=== PATIENT | male | born 1995 | race Caucasian/White ===

== ENCOUNTER 2016-04-29 22:05 | Emergency (ER) | payer OTHER, MEDICAID ==
[2016-04-29] MEDS ORDERED: IBUPROFEN 800 MG TABLET PO STA (22:20)
[2016-04-29] MEDS ORDERED: IBUPROFEN 800 MG TABLET PO ONE (22:22)
[2016-04-29] MEDS ORDERED: IBUPROFEN 400 MG TABLET PO STA (22:30)
[2016-04-29] MEDS ORDERED: IBUPROFEN 400 MG TABLET PO ONE (22:31)
== END 2016-04-29 23:46 | disposition home or self-care (01) ==
DX: S80.01XA Contusion of right knee, initial encounter (principal); W10.9XXA Fall (on) (from) unspecified stairs and steps, initial encounter; F17.200 Nicotine dependence, unspecified, uncomplicated
CPT/HCPCS: 1040M; 73562; 99283; A9270

== ENCOUNTER 2016-09-26 21:38 | Emergency (ER) | payer MEDICAID ==
--- NOTE | 2016-09-26 22:47 | XRAY Preliminary Report ---
Exam: XR Chest 2 View PA/LAT IMPRESSION: No acute intrathoracic plain film abnormality. [facility] SITE ID: [id number]
--- NOTE | 2016-09-26 22:50 | XRAY Report ---
EXAM: CHEST RADIOGRAPHY EXAM DATE: 09/26/2016 10:40 PM. CLINICAL HISTORY: Chest pain/ thoracic back pain. COMPARISON: 12/09/2015. TECHNIQUE: 2 views. FINDINGS: Lungs/Pleura: No focal opacities evident. No pleural effusion. No pneumothorax. Normal volumes. Mediastinum: Heart and mediastinal contours are unremarkable. Other: None. IMPRESSION: No acute intrathoracic plain film abnormality. [facility] Referring Provider Line: [phone] SITE ID: [id number]
--- NOTE | 2016-09-26 23:13 | ED Physician Documentation ---
History of Present Illness - Stated complaint Stated Complaint: BACK PX - Chief complaint Chief Complaint: Back Pain - Additonal information Additional information: This patient is a 21-year-old male who presents with a complaint of thoracic back pain off and on for approximately a week. There is no significant history of injury. He says sometimes he has a difficult time breathing however other times he does not. When he takes a deep breath does exacerbate the pain in the back. He does not have any abdominal pain anteriorly that might be because of referred pain to the chest. He does not have any pulmonary symptoms such as fever chills or cough or shortness of breath. The pain is clearly worse when he moves and better with rest he says. He complains of pain in the intrascapular area. Review of systems: For pertinent positive and negatives in the review of systems please see history of present illness. Otherwise all other systems have been reviewed and are negative. Dragon disclaimer: Parts of this medical record were created using voice recognition technology. Because of the inherent limitations of this system occasional same sounding word substitutions do occur and persist despite proofreading. Please read the document for context. Review of Systems Ten Systems: 10 systems reviewed and negative Constitutional: denies: Fever, Chills, Myalgias Respiratory: denies: Dyspnea, Cough, Hemoptysis, Wheezing GI: denies: Abdominal Pain, Nausea, Vomiting PD PAST MEDICAL HISTORY - Past Medical History Past Medical History: Yes Cardiovascular: None Neuro: None : Kidney stones HEENT: None - Past Surgical History Past Surgical History: Yes HEENT: Tonsil/Adenoidectomy - Present Medications Home Medications: Ambulatory Orders Medication Instructions Recorded Confirmed Ibuprofen 800 mg PO TID PRN #30 tablet 04/29/16 09/26/16 oxyCODONE [Roxicodone] 5 mg PO ONCE PRN #14 tablet 09/26/16 - Allergies Allergies/Adverse Reactions: Allergies Allergy/AdvReac Type Severity Reaction Status Date / Time ranitidine Allergy Unknown Verified 09/26/16 21:45 acetaminophen [From Tylenol] AdvReac Nausea Verified 09/26/16 21:45 tramadol AdvReac Nausea Verified 09/26/16 21:45 - Social History Does the pt smoke?: Yes Smoking Status: Current every day smoker Does the pt drink ETOH?: Yes Does the pt have substance abuse?: Yes Substance Use and Type: Marijuana - Immunizations Immunizations are current?: Yes Immunizations: TDAP >10years/unknown - POLST Patient has POLST: No PD ED PE NORMAL - General General: Alert and oriented X 3, No acute distress - HEENT HEENT: Atraumatic, PERRL, EOMI - Neck Neck: Supple, no meningeal sign, No bony TTP - Cardiac Cardiac: RRR, No gallop - Respiratory Respiratory: No respiratory distress, Clear bilaterally, Other (Tender along the thoracic spine approximately T3-T4 area) - Abdomen Abdomen: Normal bowel sounds - Derm Derm: Normal color, Warm and dry - Extremities Extremities: No deformity, No tenderness to palpate - Neuro Neuro: Alert and oriented X 3 - Psych Psych: Normal mood, Normal affect Results - Vitals Vitals: Vital Signs - 24 hr 09/26/16 21:43 Temperature 36.5 C Heart Rate 77 Respiratory 16 Rate Blood Pressure 125/81 H O2 Saturation 100 Oxygen O2 Source Room air PD MEDICAL DECISION MAKING - ED course ED course: Patient is otherwise young healthy male who complains of thoracic back pain. He says sometimes breathing exacerbates the pain and he denies any abdominal pain that might be a source of referred pain to the thoracic spine. On examination he is tender in the intrascapular area consistent with a musculoskeletal etiology.A 2 view chest was performed to 1 rule out any pulmonic or cardiac problems and to to see the thoracic spine in the lateral view. These radiographs are completely normal. The patient clinically is doing well. I will write for small amount of pain medication and asked him to follow-up with his primary care physician or return if worse. Disposition: To home Clinical impression: 1. Thoracic back strain without evidence of referred pain from the abdomen or any pulmonary or cardiac abnormalities. Departure - Departure Disposition: 01 Home, Self Care Clinical Impression: Strain of thoracic region Qualifiers: Encounter type: initial encounter Qualified Code(s): S29.019A - Strain of muscle and tendon of unspecified wall of thorax, initial encounter Condition: Good Instructions: ED Sprain Thoracic Spine Follow-Up: your, physican [Other] Prescriptions: oxyCODONE [Roxicodone] 5 mg PO ONCE PRN #14 tablet PRN Reason: Pain
[2016-09-26 23:14] VITALS: BP 116/79
== END 2016-09-26 23:12 | disposition home or self-care (01) ==
LOC: ED 21:38
DX: S29.019A Strain of muscle and tendon of unspecified wall of thorax, initial encounter (principal); X58.XXXA Exposure to other specified factors, initial encounter; F17.200 Nicotine dependence, unspecified, uncomplicated
CPT/HCPCS: 71020; 99282; 99283

== ENCOUNTER 2016-10-07 16:30 | Emergency (ER) | payer MEDICAID ==
[2016-10-07 16:44] VITALS: BP 130/79
--- NOTE | 2016-10-07 17:13 | ED Physician Documentation ---
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 Has had pain in the L heel for the past month. Noted swelling intermittently. Wears the same shoes every day. Review of Systems Constitutional: denies: Fever, Chills GI: denies: Nausea, Vomiting, Diarrhea Skin: denies: Rash Musculoskeletal: denies: Neck pain, Back pain Neurologic: denies: Headache PD PAST MEDICAL HISTORY - Past Medical History Cardiovascular: None Neuro: None : Kidney stones HEENT: None - Past Surgical History Past Surgical History: Yes HEENT: Tonsil/Adenoidectomy - Present Medications Home Medications: Ambulatory Orders Medication Instructions Recorded Confirmed Terbinafine HCl [Lamisil] 1 applic TP BID #1 spray 10/07/16 - Allergies Allergies/Adverse Reactions: Allergies Allergy/AdvReac Type Severity Reaction Status Date / Time ranitidine Allergy Unknown Verified 10/07/16 17:13 acetaminophen [From Tylenol] AdvReac Nausea Verified 10/07/16 17:13 tramadol AdvReac Nausea Verified 10/07/16 17:13 - Social History Does the pt smoke?: Yes Smoking Status: Current every day smoker Does the pt drink ETOH?: Yes Does the pt have substance abuse?: Yes - Immunizations Immunizations are current?: Yes Immunizations: TDAP >10years/unknown - POLST Patient has POLST: No PD ED PE NORMAL - Vitals Vital signs reviewed: Yes - General General: Alert and oriented X 3, No acute distress - Extremities Extremities: Other (scaling to the heel of the R foot, mild erythema. no swelling or drainage) - Neuro Neuro: Alert and oriented X 3 - Psych Psych: Normal mood, Normal affect Results - Vitals Vitals: Vital Signs - 24 hr 10/07/16 16:43 Temperature 36.8 C Heart Rate 92 Respiratory 18 Rate Blood Pressure 130/79 O2 Saturation 98 Oxygen O2 Source Room air PD MEDICAL DECISION MAKING - ED course Complexity details: considered differential, d/w patient, d/w family ED course: Patient is a 21-year-old male who presents to the emergency department with what appears to be a fungal infection of the heel. Also may be pitted karetolysis, Will trial on terbinafine topically, regular sock and shoe changes and trying to dry the feet out. We will have him follow-up with his doctor if he is not improving. Patient is well-appearing, nontoxic. Afebrile. Patient and family counseled regarding signs and symptoms for which I believe and urgent re-evaluation would be necessary. Patient with good understanding of and agreement to plan and is comfortable going home at this time This document was made in part using voice recognition software. While efforts are made to proofread this document, sound alike and grammatical errors may occur. Departure - Departure Disposition: 01 Home, Self Care Clinical Impression: Tinea pedis of left foot Condition: Good Instructions: ED Fungal Infec Athlete Foot Follow-Up: Aime Garcia MD [Primary Care Provider] - Within 1 week Prescriptions: Terbinafine HCl [Lamisil] 1 applic TP BID #1 spray Comments: Return if you worsen. This should improve over the next few days. Rotate shoes daily and change your socks during the day. Discharge Date/Time: 10/07/16 17:18
== END 2016-10-07 17:18 | disposition home or self-care (01) ==
LOC: ED 16:30
DX: B35.3 Tinea pedis (principal); F17.200 Nicotine dependence, unspecified, uncomplicated
CPT/HCPCS: 99283

== ENCOUNTER 2016-11-27 21:32 | Emergency (ER) | payer MEDICAID ==
--- NOTE | 2016-11-27 22:15 | ED Physician Documentation ---
PD HPI CHEST PAIN - Stated complaint Stated Complaint: CHEST PAIN/DIFF BREATHING - Chief complaint Chief Complaint: Cardiac - History obtained from History obtained from: Patient - History of Present Illness Timing - onset: Today (several episodes since this morning, although he has had similar episodes, albeit less intense, since he was 6 years old) Timing - duration: Minutes Timing - details: Abrupt onset, Still present, Intermittant Pain level now: 5 Quality: Pain Location: Substernal Radiation: Other (no radiation) Improved by: No: Rest, Oxygen, Nitro, ASA, Antacids, Other medication, Nothing Worsened by: No: Exertion, Inspiration, Eating, Movement, Palpation, Position Associated symptoms: Palpitations. No: Shortness of air, Diaphoresis, Nausea, Vomiting, General Weakness Similar symptoms before: Diagnosis (some symptoms are similar to previous anxiety, but the chest pain is new) Recently seen: Emergency Dept - Additional information Additional information: c/o anxiety, jittery, palpitations, chest pain, dyspnea; episodic since this morning Review of Systems Constitutional: reports: Reviewed and negative Cardiac: reports: Chest pain / pressure, Palpitations. denies: Pedal edema, Calf pain Respiratory: reports: Dyspnea. denies: Cough GI: reports: Reviewed and negative Neurologic: denies: Generalized weakness, Focal weakness, Numbness, Headache Psychiatric: reports: Anxiety. denies: Depressed, Suicidal PD PAST MEDICAL HISTORY - Past Medical History Cardiovascular: None Neuro: None : Kidney stones HEENT: None - Past Surgical History Past Surgical History: Yes HEENT: Tonsil/Adenoidectomy - Present Medications Home Medications: Ambulatory Orders Medication Instructions Recorded Confirmed Terbinafine HCl [Lamisil] 1 applic TP BID #1 spray 10/07/16 LORazepam [Ativan] 0.5 - 1 mg PO Q6H PRN #14 tablet 11/28/16 - Allergies Allergies/Adverse Reactions: Allergies Allergy/AdvReac Type Severity Reaction Status Date / Time ranitidine Allergy Unknown Verified 11/27/16 21:45 acetaminophen [From Tylenol] AdvReac Nausea Verified 11/27/16 21:45 tramadol AdvReac Nausea Verified 11/27/16 21:45 - Social History Does the pt smoke?: Yes Smoking Status: Current every day smoker Does the pt drink ETOH?: Yes Does the pt have substance abuse?: Yes - Immunizations Immunizations are current?: Yes Immunizations: TDAP >10years/unknown - POLST Patient has POLST: No PD ED PE NORMAL - Vitals Vital signs reviewed: Yes - General General: Alert and oriented X 3, Well developed/nourished, Other - Cardiac Cardiac: RRR, No murmur, No gallop, No rub - Respiratory Respiratory: No respiratory distress, Clear bilaterally - Abdomen Abdomen: Soft, Non tender Results - Vitals Vitals: Oxygen O2 Source Room air - EKG (time done) No standard instances Rate: Rate (enter#) (81) Rhythm: NSR Doland: Normal Intervals: Normal OR QRS: Normal Ischemia: Normal ST segments - Rads (name of study) chest xray Radiology: Prelim report reviewed, See rad report PD MEDICAL DECISION MAKING - ED course Complexity details: reviewed results, re-evaluated patient, considered differential, d/w patient Departure - Departure Disposition: 01 Home, Self Care Clinical Impression: Atypical chest pain, Anxiety Condition: Good Instructions: ED Chest Pain Atypical Unkn Cause, ED Panic Attack Follow-Up: Aime Garcia MD [Primary Care Provider] - (Call in the morning to arrange for next available appointment) Prescriptions: LORazepam [Ativan] 0.5 - 1 mg PO Q6H PRN #14 tablet PRN Reason: Anxiety Discharge Date/Time: 11/28/16 00:25
--- NOTE | 2016-11-27 23:55 | XRAY Preliminary Report ---
Exam: XR Chest 2 View PA/LAT IMPRESSION: Normal 2-view chest radiography. [facility] SITE ID: [id number]
--- NOTE | 2016-11-27 23:57 | XRAY Report ---
EXAM: CHEST RADIOGRAPHY EXAM DATE: 11/27/2016 11:31 PM. CLINICAL HISTORY: Chest pain. COMPARISON: 09/27/2011 chest x-ray. TECHNIQUE: 2 views. FINDINGS: Lungs/Pleura: No focal opacities evident. No pleural effusion. No pneumothorax. Normal volumes. Mediastinum: Heart and mediastinal contours are unremarkable. Other: None. IMPRESSION: Normal 2-view chest radiography. [facility] Referring Provider Line: [phone] SITE ID: [id number]
[2016-11-28] MEDS ORDERED: LORazepam 0.5 MG TABLET PO STA (00:01)
[2016-11-28] MEDS ORDERED: LORazepam 0.5 MG TABLET ONE (00:14)
[2016-11-28 00:28] VITALS: BP 116/70
== END 2016-11-28 00:25 | disposition home or self-care (01) ==
LOC: ED 21:32
DX: R07.89 Other chest pain (principal); F41.9 Anxiety disorder, unspecified; F17.200 Nicotine dependence, unspecified, uncomplicated
CPT/HCPCS: 71020; 93005; 99283; A9270

== ENCOUNTER 2016-12-13 11:27 | Emergency (ER) | payer MEDICAID ==
[2016-12-13 11:32] VITALS: BP 121/81
== END 2016-12-13 12:20 | disposition left against medical advice (07) ==
LOC: ED 11:27
DX: Z53.21 Procedure and treatment not carried out due to patient leaving prior to being seen by health care provider (principal)
CPT/HCPCS: 99281

== ENCOUNTER 2017-04-11 22:22 | Emergency (ER) | payer MEDICAID ==
[2017-04-11 22:44] LABS: BASOPHILS % (AUTO) 0.3 %; EOSINOPHILS # (AUTO) 0.2 10^3/uL (0.0-0.7); EOSINOPHILS % (AUTO) 1.6 %; HGB - HEMOGLOBIN 17.4 g/dL (14.0-18.0); LYMPHOCYTES # (AUTO) 3.4 10^3/uL (1.5-3.5); LYMPHOCYTES % (AUTO) 33.6 %; MEAN CORPUSCULAR HEMOGLOBIN 33.1 pg (27.0-31.0); MEAN CORPUSCULAR VOLUME 94.6 fL (80.0-94.0); MEAN PLATELET VOLUME 8.6 fL (7.4-11.4); MONOCYTES % (AUTO) 10.1 %; NEUTROPHILS # (AUTO) 5.4 10^3/uL (1.5-6.6); NEUTROPHILS % (AUTO) 54.4 %; PLT - PLATELET COUNT 226 10^3/uL (130-450); RED BLOOD COUNT 5.27 10^6/uL (4.70-6.10); RED CELL DISTRIBUTION WIDTH 13.6 % (12.0-15.0)
[2017-04-11 22:44] LABS: BILIRUBIN,URINE NEGATIVE (NEGATIVE); GLUCOSE, URINE (UA) NEGATIVE (NEGATIVE); KETONES,URINE (UA) NEGATIVE (NEGATIVE); LEUKOCYTE ESTERASE, URINE NEGATIVE (NEGATIVE); NITRITE,URINE NEGATIVE (NEGATIVE); OCCULT BLOOD,URINE TRACE-INTA (NEGATIVE); PROTEIN,URINE NEGATIVE (NEGATIVE); UROBILINOGEN,URINE 0.2 (NORMAL) E.U./dL (NORMAL)
[2017-04-11 22:45] LABS: CLARITY,URINE CLEAR (CLEAR)
[2017-04-11 22:55] LABS: ALBUMIN 4.8 g/dL (3.2-5.5); ALBUMIN/GLOBULIN RATIO 1.5 (1.0-2.2); BILIRUBIN,TOTAL 0.6 mg/dL (0.2-1.0); CALCIUM 9.6 mg/dL (8.5-10.3); CREATININE 0.8 mg/dL (0.6-1.2); TOTAL PROTEIN 8.1 g/dL (6.7-8.2)
--- NOTE | 2017-04-11 23:38 | ED Physician Documentation ---
PD HPI ABD PAIN - Stated complaint Stated Complaint: ABD PX/VOMITING - Chief complaint Chief Complaint: Abd Pain - History obtained from History obtained from: Patient - History of Present Illness Timing - onset: How many days ago (6 days) Timing - details: Gradual onset Pain level now: 6 Quality: Pain Location: Epigastric, LUQ Radiation: No: Chest, , Lower back, Left flank, Left shoulder, Right flank, Right shoulder, Upper back Improved by: Other (no ameliorating factors) Worsened by: Other (no exacerbating factors) Associated symptoms: Nausea, Vomiting, Diarrhea. No: Fever Similar symptoms before: Has not had sx before Review of Systems Constitutional: reports: Reviewed and negative Cardiac: reports: Reviewed and negative Respiratory: reports: Reviewed and negative GI: reports: Abdominal Pain, Nausea, Vomiting, Diarrhea : denies: Dysuria, Frequency PD PAST MEDICAL HISTORY - Past Medical History Past Medical History: Yes Cardiovascular: None Respiratory: None Neuro: None Endocrine/Autoimmune: None : Kidney stones HEENT: None Psych: Depression, Anxiety Derm: None - Past Surgical History Past Surgical History: Yes Ortho: Other HEENT: Tonsil/Adenoidectomy - Present Medications Home Medications: Ambulatory Orders Medication Instructions Recorded Confirmed Omeprazole [PriLOSEC] 20 mg PO DAILY #14 capsule 04/12/17 Ondansetron Odt [Zofran] 4 mg TL Q6H PRN #14 tablet 04/12/17 Phenobarb/Hyoscy/Atropine/Scop 16.2 mg PO Q6HR PRN #12 tablet 04/12/17 [ Tablet] - Allergies Allergies/Adverse Reactions: Allergies Allergy/AdvReac Type Severity Reaction Status Date / Time ranitidine Allergy Unknown Verified 04/11/17 22:25 acetaminophen [From Tylenol] AdvReac Nausea Verified 04/11/17 22:25 tramadol AdvReac Nausea Verified 04/11/17 22:25 - Social History Does the pt smoke?: Yes Smoking Status: Current every day smoker Does the pt drink ETOH?: Yes Does the pt have substance abuse?: Yes - Immunizations Immunizations are current?: No Immunizations: TDAP >10years/unknown - POLST Patient has POLST: No PD ED PE NORMAL - Vitals Vital signs reviewed: Yes - General General: Alert and oriented X 3, No acute distress, Well developed/nourished - HEENT HEENT: Moist mucous membranes - Neck Neck: Supple, no meningeal sign - Cardiac Cardiac: RRR, No murmur - Respiratory Respiratory: No respiratory distress, Clear bilaterally - Abdomen Abdomen: Normal bowel sounds, Soft, Non tender, Non distended, No organomegaly - Derm Derm: Normal color, Warm and dry Results - Vitals Vitals: Vital Signs - 24 hr 04/11/17 04/12/17 04/12/17 22:25 00:41 02:22 Temperature 36.7 C 36.6 C Heart Rate 88 69 65 Respiratory 18 16 18 Rate Blood Pressure 142/109 H 129/82 H 124/75 O2 Saturation 100 99 98 Oxygen O2 Source Room air - Labs Labs: Laboratory Tests 04/11/17 04/11/17 04/11/17 22:35 22:37 22:37 WBC 10.0 RBC 5.27 Hgb 17.4 Hct 49.8 MCV 94.6 H MCH 33.1 H MCHC 35.0 RDW 13.6 Plt Count 226 MPV 8.6 Neut # 5.4 Lymph # 3.4 Breathitt # 1.0 Eos # 0.2 Baso # 0.0 Absolute Nucleated RBC 0.01 Nucleated RBC % 0.1 Sodium 138 Potassium 3.5 Chloride 98 L Carbon Dioxide 29 Anion Gap 11.0 BUN 15 Creatinine 0.8 Estimated GFR (MDRD) 119 Glucose 106 H Calcium 9.6 Total Bilirubin 0.6 AST 21 ALT 21 Alkaline Phosphatase 61 Total Protein 8.1 Albumin 4.8 Globulin 3.3 Albumin/Globulin Ratio 1.5 Lipase 24 Urine Color YELLOW Urine Clarity CLEAR Urine pH 7.0 Ur Specific [place] 1.020 Urine Protein NEGATIVE Urine Glucose (UA) NEGATIVE Urine Ketones NEGATIVE Urine Occult Blood TRACE-INTA Urine Nitrite NEGATIVE Urine Bilirubin NEGATIVE Urine Urobilinogen 0.2 (NORMAL) Ur Leukocyte Esterase NEGATIVE Ur Microscopic Review NOT INDICATED Urine Culture Comments NOT INDICATED PD MEDICAL DECISION MAKING - ED course Complexity details: reviewed results, re-evaluated patient, considered differential, d/w patient ED course: reported improvement with GI cocktail, zofran, requesting discharge home Departure - Departure Disposition: , Self Care Clinical Impression: Abdominal pain Qualifiers: Abdominal location: upper abdomen, unspecified Qualified Code(s): R10.10 - Upper abdominal pain, unspecified Condition: Good Instructions: ED Abdominal Pain Unkn Cause Male Follow-Up: Aime Garcia MD [Primary Care Provider] - Within 1 week Prescriptions: Phenobarb/Hyoscy/Atropine/Scop [ Tablet] 16.2 mg PO Q6HR PRN #12 tablet PRN Reason: Abdominal Pain Omeprazole [PriLOSEC] 20 mg PO DAILY #14 capsule Ondansetron Odt [Zofran] 4 mg TL Q6H PRN #14 tablet PRN Reason: Nausea / Vomiting Discharge Date/Time: 04/12/17 02:23
[2017-04-11] MEDS ORDERED: LIDOCAINE VISCOUS 2% 15 ML UDC MM STA (23:59)
[2017-04-11] MEDS ORDERED: MAG HYDROX/AL HYDROX/SIMETH 30 ML UDC PO STA (23:59)
[2017-04-12] MEDS ORDERED: PANTOPRAZOLE 40 MG TABLET PO STA
[2017-04-12] MEDS ORDERED: PHENobarb/HYOSCY/ATROPINE/SCOP 5 ML SYRINGE PO STA
[2017-04-12] MEDS ORDERED: ONDANSETRON 4 MG/2 ML VIAL IVP STA (00:01)
[2017-04-12 02:23] VITALS: BP 124/75
== END 2017-04-12 02:23 | disposition home or self-care (01) ==
LOC: ED 22:22
DX: R10.13 Epigastric pain (principal); R10.12 Left upper quadrant pain; F17.200 Nicotine dependence, unspecified, uncomplicated
CPT/HCPCS: 36415; 80053; 81003; 83690; 85025; 96374; 99283; A9270; 81001; 87086

== ENCOUNTER 2017-04-18 15:04 | Emergency (ER) | payer MEDICAID ==
--- NOTE | 2017-04-18 15:25 | ED Physician Documentation ---
History of Present Illness - Stated complaint Stated Complaint: FEVER/FACIAL NUMBNESS - Chief complaint Chief Complaint: Heent - History obtained from History obtained from: Patient - History of Present Illness Timing: Other (He developed facial pressure especially over the lack left maxillary sinus last night associated with fever to 100.1 and a productive cough , occasionally with some bloody sputum but no shortness of breath.) Review of Systems Constitutional: reports: Fever, Chills Nose: reports: Rhinorrhea / runny nose, Congestion, Sinus pressure / pain Throat: denies: Sore throat Respiratory: reports: Cough. denies: Dyspnea PD PAST MEDICAL HISTORY - Past Medical History Cardiovascular: None Respiratory: None Neuro: None Endocrine/Autoimmune: None : Kidney stones HEENT: None Psych: Depression, Anxiety Derm: None - Past Surgical History Past Surgical History: Yes Ortho: Other HEENT: Tonsil/Adenoidectomy - Present Medications Home Medications: Ambulatory Orders Medication Instructions Recorded Confirmed Omeprazole [PriLOSEC] 20 mg PO DAILY #14 capsule 04/12/17 Ondansetron Odt [Zofran] 4 mg TL Q6H PRN #14 tablet 04/12/17 Phenobarb/Hyoscy/Atropine/Scop 16.2 mg PO Q6HR PRN #12 tablet 04/12/17 [ Tablet] Amox/Clav 875/125 [Augmentin] 1 each PO Q12H #20 tablet 04/18/17 Ibuprofen [Motrin] 800 mg PO Q8H PRN #30 tablet 04/18/17 predniSONE [Deltasone] 60 mg PO DAILY 5 Days tablet 04/18/17 - Allergies Allergies/Adverse Reactions: Allergies Allergy/AdvReac Type Severity Reaction Status Date / Time ranitidine Allergy Unknown Verified 04/11/17 22:25 acetaminophen [From Tylenol] AdvReac Nausea Verified 04/11/17 22:25 tramadol AdvReac Nausea Verified 04/11/17 22:25 - Social History Does the pt smoke?: Yes Smoking Status: Current every day smoker Does the pt drink ETOH?: Yes Does the pt have substance abuse?: Yes - Immunizations Immunizations are current?: No Immunizations: TDAP >10years/unknown - POLST Patient has POLST: No PD ED PE NORMAL - Vitals Vital signs reviewed: Yes - General General: Alert and oriented X 3, No acute distress - HEENT HEENT: Other (Tender over the left maxillary sinus, TMs are normal. Oropharynx is normal, no tonsils.) - Neck Neck: Supple, no meningeal sign, No bony TTP - Cardiac Cardiac: RRR, No murmur - Respiratory Respiratory: No respiratory distress, Clear bilaterally - Abdomen Abdomen: Non tender - Neuro Neuro: Alert and oriented X 3, Normal speech - Psych Psych: Normal mood, Normal affect Results - Vitals Vitals: Vital Signs - 24 hr 04/18/17 15:12 Temperature 36.3 C L Heart Rate 88 Respiratory 18 Rate Blood Pressure 132/71 H O2 Saturation 100 Oxygen O2 Source Room air Departure - Departure Disposition: Home, Self Care Clinical Impression: Sinusitis Qualifiers: Sinusitis location: maxillary Chronicity: acute Recurrence: non-recurrent Qualified Code(s): J01.00 - Acute maxillary sinusitis, unspecified Condition: Good Record reviewed to determine appropriate education?: Yes Instructions: ED Sinusitis Abx Tx Prescriptions: Amox/Clav 875/125 [Augmentin] 1 each PO Q12H #20 tablet Ibuprofen [Motrin] 800 mg PO Q8H PRN #30 tablet PRN Reason: PAIN &/OR FEVER predniSONE [Deltasone] 60 mg PO DAILY 5 Days tablet Comments: Call your doctor to arrange a follow-up appointment, make the next available appointment. In the interim, return anytime if worse or if new symptoms develop. Your blood pressure was elevated today on check into the emergency department. This does not mean that you have hypertension, it is a common phenomenon to come to the emergency department and have elevated blood pressure. I recommend that you see your primary care physician within the week to have it rechecked when you are feeling better. Forms: Activity restrictions
[2017-04-18 15:48] VITALS: BP 120/79
== END 2017-04-18 15:47 | disposition home or self-care (01) ==
LOC: ED 15:04
DX: J01.00 Acute maxillary sinusitis, unspecified (principal); R03.0 Elevated blood-pressure reading, without diagnosis of hypertension; F17.200 Nicotine dependence, unspecified, uncomplicated
CPT/HCPCS: 99283

== ENCOUNTER 2023-03-23 20:27 | Outpatient (CLI) | payer SELFPAY | END 2023-03-23 23:49 | disposition EMS.NT | LOC: EMS 20:27 | DX: Z04.1 Encounter for examination and observation following transport accident (principal) ==

== ENCOUNTER 2025-03-10 20:46 | Inpatient (IN) ==
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
[2025-03-10 21:19] LABS: HCT - HEMATOCRIT 47.8 % (42.0-52.0); HGB - HEMOGLOBIN 17.0 g/dL (14.0-18.0); MEAN PLATELET VOLUME 10.7 fL (7.4-11.4); NRBC ABSOLUTE COUNT (AUTO) 0.00 x10^3/uL; NUCLEATED RED BLOOD CELLS AUTO 0.0 /100WBC; PLT - PLATELET COUNT 170 10^3/uL (130-450); RED CELL DISTRIBUTION WIDTH 12.3 % (12.0-15.0)
[2025-03-10] MEDS: SODIUM CHLORIDE 0.9% 1,000 ML IV STA ×2 (21:27→22:39)
[2025-03-10 21:33] LABS: ALT ALANINE AMINOTRANSFERASE 63.0 IU/L (10-60); AST ASPARTATE AMINOTRANSFERASE 55.0 IU/L (10-42); BUN - BLOOD UREA NITROGEN 5.0 mg/dL (6-20); CARBON DIOXIDE - CO2 22.0 mmol/L (21-32); CREATININE 0.5 mg/dL (0.6-1.3); GFR - MDRD 194.0 (>89)
--- NOTE | 2025-03-10 21:40 | CT Report ---
PROCEDURE: CT Head WO INDICATIONS: fall, head injury TECHNIQUE: CT of the head was performed, without intravenous contrast. Reformats: Coronal and sagittal. For radiation dose reduction, the following was used: automated exposure control, adjustment of mA and/or kV according to patient size. COMPARISON: None. FINDINGS: Image quality: Diagnostic CSF spaces: Basal cisterns are patent. Lateral ventricles are symmetric. Volume: There is minimal volume loss in the frontal lobes, greater than expected for age. Brain: No acute cranial hemorrhage. No gross loss of lynn-white differentiation Craniofacial structures: Partially seen opacification of the left maxillary sinus. IMPRESSION: No acute intracranial hemorrhage. Left maxillary sinus disease. Reviewed by: Mukesh Chopra MD on 03/10/2025 9:37 PM [facility] Approved by: Mukesh Chopra MD on 03/10/2025 9:37 PM [facility] Station ID: [id number]
--- OUTSIDE RECORDS SUMMARY | 2025-03-10 21:48 | EXTERNAL MEDICAL SUMMARY RPT | Continuity of Care Document ---
Author Organization [facility] Address [address] [place] [id number] Phone Allergies and Intolerances date description facility reaction severity 2017-04-11 10:00 [id number]^acetamino phen^^From Tylenol^^allergy.id [facility] Nausea (no severity) 2025-03-09 10:00 [id number]^acetamino phen^^From Tylenol^^allergy.id [facility] Nausea (no severity) 2025-03-10 10:00 [id number]^acetamino phen^^From Tylenol^^allergy.id [facility] Nausea (no severity) 2017-04-11 10:00 [id number]^tramadol^ ^tramadol^ ^allergy.id [facility] Nausea (no severity) 2025-03-09 10:00 [id number]^tramadol^ ^tramadol^ ^allergy.id [facility] Nausea (no severity) 2025-03-10 10:00 [id number]^tramadol^ ^tramadol^ ^allergy.id [facility] Nausea (no severity) 2017-04-11 10:00 [id number]^ranitidin e^^ranitid ine^^allergy.id [facility] Unknown (no severity) 2025-03-09 10:00 [id number]^ranitidin e^^ranitid ine^^allergy.id [facility] Unknown (no severity) 2025-03-10 10:00 [id number]^ranitidin e^^ranitid ine^^allergy.id [facility] Unknown (no severity) Results/Labs test date facility value unit notes Result panel 1 TROPONIN I HIGH SENSITIVITY 2025-03-09 [facility] 7.0 ng/l A HIGH SENSIT IVITY TROPONIN result of >= 14.9 ng/L for females is considered POSITIVE. A HIGH SENSITIVITY TROPONIN result of >= 19.8 ng/L for males is considered POSITIVE. A HIGH SENSITIVITY TROPONIN result of >= 17.9 ng/L for unspecified is considered POSITIVE. Result panel 2 SPECIFIC GRAVITY,URINE 2025-03-09 18:05 [facility] <=1.005 (missing) (missing) WBC,URINE 2025-03-09 18:05 [facility] 0-3 /hpf (missing) UROBILINOGEN,URINE 2025-03-09 18:05 [facility] 0.2 (NORMAL) e.u./dl (missing) RBC,URINE 2025-03-09 18:05 [facility] 6-10 /hpf (missing) PH,URINE 2025-03-09 18:05 [facility] 6.0 ph (missing) CLARITY,URINE 2025-03-09 18:05 [facility] CLEAR (missing) (missing) SQUAMOUS EPITHELIAL CELL,UR 2025-03-09 18:05 [facility] FEW Squamous (missing) (missing) BACTERIA,URINE 2025-03-09 18:05 [facility] Few /hpf (missing) URINE MICROSCOPIC INDICATED? 2025-03-09 18:05 [facility] INDICATED (missing) (missing) COLOR,URINE 2025-03-09 18:05 [facility] Light yellow (missing) URINE CLEAN CATCH LEUKOCYTE ESTERASE, URINE 2025-03-09 18:05 [facility] NEGATIVE (missing) (missing) NITRITE,URINE 2025-03-09 18:05 [facility] NEGATIVE (missing) (missing) BILIRUBIN,URINE 2025-03-09 18:05 [facility] NEGATIVE (missing) Bilirubin can be influenced by color interference. Please correlate positive results with clinical presentation GLUCOSE, URINE (UA) 2025-03-09 18:05 [facility] NEGATIVE mg/dl (missing) KETONES,URINE (UA) 2025-03-09 18:05 [facility] NEGATIVE mg/dl (missing) UR CULTURE IF IND 2025-03-09 18:05 [facility] NOT INDICATED (missing) (missing) OCCULT BLOOD,URINE 2025-03-09 18:05 [facility] SMALL (missing) (missing) PROTEIN,URINE 2025-03-09 18:05 [facility] TRACE mg/dl (missing) Result panel 3 NUCLEATED RED BLOOD CELLS AUTO 2025-03-09 19:05 [facility] 0.0 /100wbc (missing) EOSINOPHILS # (AUTO) 2025-03-09 19:05 [facility] 0.0 10 3/ul (missing) NRBC ABSOLUTE COUNT (AUTO) 2025-03-09 19:05 [facility] 0.00 x10 3/ul (missing) BASOPHILS # (AUTO) 2025-03-09 19:05 [facility] 0.1 10 3/ul (missing) MONOCYTES # (AUTO) 2025-03-09 19:05 [facility] 0.7 10 3/ul (missing) BILIRUBIN,TOTAL 2025-03-09 19:05 [facility] 0.7 mg/dl As of September 2022 testing method has changed, this may include reference ranges. CREATININE 2025-03-09 19:05 [facility] 0.7 mg/dl As of September 2022 testing method has changed, this may include reference ranges. ALBUMIN/GLOBULIN RATIO 2025-03-09 19:05 [facility] 1.7 (missing) (missing) ANION GAP 2025-03-09 19:05 [facility] 10.0 (missing) (missing) CALCIUM 2025-03-09 19:05 [facility] 10.0 mg/dl As of September 2022 testing method has changed, this may include reference ranges. MEAN PLATELET VOLUME 2025-03-09 19:05 [facility] 10.6 fl (missing) WHITE BLOOD COUNT 2025-03-09 19:05 [facility] 10.6 x10 3/ul (missing) GLUCOSE 2025-03-09 19:05 [facility] 100 mg/dl As of September 2022 testing method has changed, this may include reference ranges. RED CELL DISTRIBUTION WIDTH 2025-03-09 19:05 [facility] 12.3 % (missing) GFR - MDRD 2025-03-09 19:05 [facility] 132 (missing) The IDMS-traceable MDRD Study Equation has been validated extensively in and populations between the ages of 18 and 70 with impaired kidney function (eGFR < 60 mL/min/1.73m2) and has shown good performance for patients with all common causes of kidney disease. Although this equation has not been validated for patients older than 70, an MDRD-derived eGFR may still be a useful tool for providers caring for patients older than 70. References: http://www.nkdep. nih.gov/lab-evalu ation/gfr/creatin ine-stand ardization, last updated May 2011. SODIUM 2025-03-09 19:05 [facility] 137 mmol/l (missing) HGB - HEMOGLOBIN 2025-03-09 19:05 [facility] 17.1 g/dl (missing) PLT - PLATELET COUNT 2025-03-09 19:05 [facility] 177 10 3/ul (missing) LYMPHOCYTES # (AUTO) 2025-03-09 19:05 [facility] 2.1 10 3/ul (missing) GLOBULIN 2025-03-09 19:05 [facility] 2.8 g/dl (missing) CARBON DIOXIDE - CO2 2025-03-09 19:05 [facility] 29 mmol/l As of September 2022 testing method has changed, this may include reference ranges. POTASSIUM 2025-03-09 19:05 [facility] 3.8 mmol/l As of September 2022 testing method has changed, this may include reference ranges. MEAN CORPUSCULAR HEMOGLOBIN 2025-03-09 19:05 [facility] 35.6 pg (missing) MEAN CORPUSCULAR HGB CONC 2025-03-09 19:05 [facility] 35.8 g/dl (missing) ALBUMIN 2025-03-09 19:05 [facility] 4.8 g/dl As of September 2022 testing method has changed, this may include reference ranges. RED BLOOD COUNT 2025-03-09 19:05 [facility] 4.80 10 6/ul (missing) HCT - HEMATOCRIT 2025-03-09 19:05 [facility] 47.7 % (missing) AST ASPARTATE AMINOTRANSFERASE 2025-03-09 19:05 [facility] 50 iu/l As of September 2022 testing method has changed, this may include reference ranges. LIPASE 2025-03-09 19:05 [facility] 56 u/l As of September 2022 testing method has changed, this may include reference ranges. BUN - BLOOD UREA NITROGEN 2025-03-09 19:05 [facility] 6 mg/dl As of September 2022 testing method has changed, this may include reference ranges. ALT ALANINE AMINOTRANSFERASE 2025-03-09 19:05 [facility] 66 iu/l As of September 2022 testing method has changed, this may include reference ranges. TOTAL PROTEIN 2025-03-09 19:05 [facility] 7.6 g/dl As of September 2022 testing method has changed, this may include reference ranges. NEUTROPHILS # (AUTO) 2025-03-09 19:05 [facility] 7.7 10 3/ul (missing) ALKALINE PHOSPHATASE 2025-03-09 19:05 [facility] 75 iu/l As of September 2022 testing method has changed, this may include reference ranges. CHLORIDE 2025-03-09 19:05 [facility] 98 mmol/l As of September 2022 testing method has changed, this may include reference ranges. MEAN CORPUSCULAR VOLUME 2025-03-09 19:05 [facility] 99.4 fl (missing) Result panel 4 NUCLEATED RED BLOOD CELLS AUTO 2025-03-10 21:14 [facility] 0.0 /100wbc (missing) EOSINOPHILS # (AUTO) 2025-03-10 21:14 [facility] 0.0 10 3/ul (missing) NRBC ABSOLUTE COUNT (AUTO) 2025-03-10 21:14 [facility] 0.00 x10 3/ul (missing) BASOPHILS # (AUTO) 2025-03-10 21:14 [facility] 0.1 10 3/ul (missing) CREATININE 2025-03-10 21:14 [facility] 0.5 mg/dl As of September 2022 testing method has changed, this may include reference ranges. LYMPHOCYTES # (AUTO) 2025-03-10 21:14 [facility] 0.8 10 3/ul (missing) BILIRUBIN,TOTAL 2025-03-10:14 [facility] 1.0 mg/dl As of September 2022 testing method has changed, this may include reference ranges. MONOCYTES # (AUTO) 2025-03-10 21:14 [facility] 1.1 10 3/ul (missing) ALBUMIN/GLOBULIN RATIO 2025-03-10 21:14 [facility] 1.8 (missing) (missing) CALCIUM 2025-03-10 21:14 [facility] 10.0 mg/dl As of September 2022 testing method has changed, this may include reference ranges. MEAN PLATELET VOLUME 2025-03-10 21:14 [facility] 10.7 fl (missing) RED CELL DISTRIBUTION WIDTH 2025-03-10 21:14 [facility] 12.3 % (missing) GLUCOSE 2025-03-10 21:14 [facility] 120 mg/dl As of September 2022 testing method has changed, this may include reference ranges. SODIUM 2025-03-10 21:14 [facility] 130 mmol/l (missing) ANION GAP 2025-03-10 21:14 [facility] 15.0 (missing) (missing) NEUTROPHILS # (AUTO) 2025-03-10 21:14 [facility] 15.3 10 3/ul (missing) HGB - HEMOGLOBIN 2025-03-10 21:14 [facility] 17.0 g/dl (missing) WHITE BLOOD COUNT 2025-03-10 21:14 [facility] 17.3 x10 3/ul (missing) PLT - PLATELET COUNT 2025-03-10 21:14 [facility] 170 10 3/ul (missing) GFR - MDRD 2025-03-10 21:14 [facility] 194 (missing) The IDMS-traceable MDRD Study Equation has been validated extensively in and populations between the ages of 18 and 70 with impaired kidney function (eGFR < 60 mL/min/1.73m2) and has shown good performance for patients with all common causes of kidney disease. Although this equation has not been validated for patients older than 70, an MDRD-derived eGFR may still be a useful tool for providers caring for patients older than 70. References: http://www.nkdep. nih.gov/lab-evalu ation/gfr/creatin ine-stand ardization, last updated May 2011. GLOBULIN 2025-03-10 21:14 [facility] 2.8 g/dl (missing) CARBON DIOXIDE - CO2 2025-03-10 21:14 [facility] 22 mmol/l As of September 2022 testing method has changed, this may include reference ranges. POTASSIUM 2025-03-10 21:14 [facility] 3.7 mmol/l As of September 2022 testing method has changed, this may include reference ranges. LIPASE 2025-03-10 21:14 [facility] 35 u/l As of September 2022 testing method has changed, this may include reference ranges. MEAN CORPUSCULAR HEMOGLOBIN 2025-03-10 21:14 [facility] 35.3 pg (missing) MEAN CORPUSCULAR HGB CONC 2025-03-10 21:14 [facility] 35.6 g/dl (missing) RED BLOOD COUNT 2025-03-10 21:14 [facility] 4.82 10 6/ul (missing) ALBUMIN 2025-03-10 21:14 [facility] 4.9 g/dl As of September 2022 testing method has changed, this may include reference ranges. HCT - HEMATOCRIT 2025-03-10 21:14 [facility] 47.8 % (missing) BUN - BLOOD UREA NITROGEN 2025-03-10:14 [facility] 5 mg/dl As of September 2022 testing method has changed, this may include reference ranges. AST ASPARTATE AMINOTRANSFERASE 2025-03-10 21:14 [facility] 55 iu/l As of September 2022 testing method has changed, this may include reference ranges. ALT ALANINE AMINOTRANSFERASE 2025-03-10:14 [facility] 63 iu/l As of September 2022 testing method has changed, this may include reference ranges. TOTAL PROTEIN 2025-03-10 21:14 [facility] 7.7 g/dl As of September 2022 testing method has changed, this may include reference ranges. ALKALINE PHOSPHATASE 2025-03-10 21:14 [facility] 73 iu/l As of September 2022 testing method has changed, this may include reference ranges. CHLORIDE 2025-03-10:14 [facility] 93 mmol/l As of September 2022 testing method has changed, this may include reference ranges. MEAN CORPUSCULAR VOLUME 2025-03-10 21:14 [facility] 99.2 fl (missing) Social History date description facility
[2025-03-10] MEDS: KETOROLAC 30 MG/ML VIAL IVP STA (22:18)
--- NOTE | 2025-03-10 22:30 | XRAY Report ---
PROCEDURE: XR Chest 2V INDICATIONS: left posterior rib and right scapular TTP TECHNIQUE: 2 views of the chest were acquired. COMPARISON: 03/09/2025 FINDINGS AND IMPRESSION: No pneumothorax. No airspace consolidation or pleural effusion. Normal heart size. Unremarkable osseous structures. No displaced fractures seen on chest radiography. If there is high concern for occult injury, consider cross-sectional imaging. Reviewed by: Mukesh Chopra MD on 03/10/2025 10:[address] [facility] Approved by: Mukesh Chopra MD on 03/10/2025 10:[address] [facility] Station ID: [id number]
[2025-03-10] MEDS: LORazepam 2 MG/ML VIAL IVP STA (23:14)
[2025-03-11] MEDS: SODIUM CHLORIDE 0.9% 1,000 ML IV STA (01:27)
[2025-03-11] MEDS: LORazepam 2 MG/ML VIAL IVP STA (02:54)
[2025-03-11] MEDS ORDERED: SODIUM CHLORIDE FLUSH 0.9% 10 ML SYRINGE IVP PRN (03:48)
[2025-03-11] MEDS: diazePAM INJ 5 MG/ML SYRINGE IVP PRN (04:13)
[2025-03-11] MEDS: SODIUM CHLORIDE 0.9% 1,000 ML IV SCH (04:19)
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
[2025-03-11 06:04] LABS: HCT - HEMATOCRIT 41.8 % (42.0-52.0); HGB - HEMOGLOBIN 14.8 g/dL (14.0-18.0); MEAN PLATELET VOLUME 11.5 fL (7.4-11.4); NRBC ABSOLUTE COUNT (AUTO) 0.00 x10^3/uL; NUCLEATED RED BLOOD CELLS AUTO 0.0 /100WBC; PLT - PLATELET COUNT 148 10^3/uL (130-450); RED CELL DISTRIBUTION WIDTH 12.3 % (12.0-15.0)
[2025-03-11 06:06] LABS: INR 1.0 (0.8-1.2); PT - PROTHROMBIN TIME 11.8 secs (9.9-12.6)
[2025-03-11] MEDS: IBUPROFEN 600 MG TABLET PO PRN (06:16)
[2025-03-11 06:19] LABS: ALT ALANINE AMINOTRANSFERASE 49.0 IU/L (10-60); AST ASPARTATE AMINOTRANSFERASE 56.0 IU/L (10-42); BUN - BLOOD UREA NITROGEN 4.0 mg/dL (6-20); CARBON DIOXIDE - CO2 23.0 mmol/L (21-32); CREATININE 0.5 mg/dL (0.6-1.3); GFR - MDRD 194.0 (>89)
[2025-03-11] MEDS: PRENATAL VITAMIN TABLET PO SCH (10:19)
[2025-03-11] MEDS: THIAMINE 100 MG TABLET PO SCH (10:20)
[2025-03-11] MEDS: ENOXAPARIN 40 MG/0.4 ML SYRINGE SUBQ SCH (10:20)
[2025-03-11] MEDS: NICOTINE 14 MG PATCH TOP SCH (10:20)
[2025-03-11] MEDS: SODIUM CHLORIDE FLUSH 0.9% 10 ML SYRINGE IVP SCH (10:20)
--- NOTE | 2025-03-11 12:06 | PHARMACY PROGRESS NOTE ---
Best Possible Medication History Admit Date and Time: 03/11/25 0307 Home Medications Medication Instructions Recorded Confirmed Type No Known Home Medications 03/09/2502/16 History Processed by: Pharmacy (Medication reconciliation completed by [place]) Medications reviewed in ED?: No Medication History completed: Yes Patient Interview: Completed Secondary Source(s): Insurance records [facility] Statement: As the person ultimately responsible for medication therapy, providers are able to order a medication from an existing home medication list in [facility] via the "Reconcile Routine" prior to Confirmation of that medication by client support analyst. Such practice is discouraged except when the physician, in their clinical judgment, deems that a medical need exists for a medication without regard to previous use.
[2025-03-11] MEDS: PHENOL THROAT SPRAY 177 ML MM PRN (16:59)
--- NOTE | 2025-03-11 21:50 | Ultrasound Report ---
PROCEDURE: US Abdomen Limited INDICATIONS: elevated LFTs, alcohol abuse TECHNIQUE: Real-time focused scanning was performed of the abdomen, with image documentation. COMPARISONS: None. FINDINGS: Liver measures 24 cm. Increased hepatic echogenicity. Visualization is limited due to the dense appearance. There is also bowel gas obscuration. Main portal vein appears patent. Gallbladder is unremarkable. CBD measures 6 mm, upper limit of normal. Partially seen pancreas unremarkable. Right kidney measures 13 cm. IMPRESSION: Enlarged echogenic liver, nonspecific, most commonly steatosis. No acute gallbladder abnormality. CBD measures 6 mm, which is the upper limit of normal. Poor sonographic windows, limiting evaluation. Reviewed by: Mukesh Chopra MD on 03/11/2025 9:47 PM PST Approved by: Mukesh Chopra MD on 03/11/2025 9:47 PM PST Station ID: [id number]
[2025-03-12] MEDS: BENZOCAINE/MENTHOL LOZENGE MM PRN (01:34)
[2025-03-12 10:08] LABS: HCT - HEMATOCRIT 46.2 % (42.0-52.0); HGB - HEMOGLOBIN 16.3 g/dL (14.0-18.0); MEAN PLATELET VOLUME 10.8 fL (7.4-11.4); NRBC ABSOLUTE COUNT (AUTO) 0.00 x10^3/uL; NUCLEATED RED BLOOD CELLS AUTO 0.0 /100WBC; PLT - PLATELET COUNT 151 10^3/uL (130-450); RED CELL DISTRIBUTION WIDTH 12.1 % (12.0-15.0)
--- NOTE | 2025-03-12 11:07 | PROVIDER PROGRESS NOTE ---
Subjective Prog Note Date Prog Note Date: 03/12/25 Subjective Subjective: He is doing well, alert and oriented, but feels very anxious today. He knows that he is not through his withdrawals. He is able to tell me that his 7 year old son found him in the bathroom, he then drove to the ED. Current Medications Current Medications Current Medications: Current Medications Generic Name Dose Route Start Last Admin Trade Name Freq PRN Reason Stop Dose Admin Chlordiazepoxide HCl 25 mg 03/11/25 12:00 03/12/25 05:28 Chlordiazepoxide 25 Mg Capsule PO 25 mg Q6HR THOM Administration Diazepam 10 mg 03/11/25 03:13 03/12/25 01:34 Diazepam 5 Mg Tablet PO 10 mg Q1H PRN Administration CIWA>8 Protocol Diazepam 5 mg 03/11/25 03:13 03/12/25 10:12 Diazepam Inj 5 Mg/Ml Syringe IVP 5 mg Q30M PRN Administration CIWA > 8 Protocol Enoxaparin Sodium 40 mg 03/11/25 09:00 03/12/25 09:41 Enoxaparin 40 Mg/0.4 Ml Syringe SUBQ 40 mg DAILY THOM Administration Ibuprofen 600 mg 03/11/25 05:42 03/11/25 06:16 Ibuprofen 600 Mg Tablet PO 600 mg Q6HR PRN Administration pain Nicotine 1 patch 03/11/25 09:00 03/12/25 09:41 Nicotine 14 Mg Patch TOP 1 patch DAILY THOM Administration Phenol/Menthol 2 sprays 03/11/25 16:41 03/11/25 20:00 Phenol Throat Shepherd 177 Ml MM 2 sprays Q2HR PRN Administration Throat Pain Multivit/Folic Acid/Iron 1 tab 03/11/25 09:00 03/12/25 09:41 Vitamin Tablet PO 1 tab DAILYWM THOM Administration Sodium Chloride 10 ml 03/11/25 03:48 Sodium Chloride Flush 0.9% 10 Ml Syringe IVP PRN PRN NEEDED PER PROVIDER ORDERS Sodium Chloride 10 ml 03/11/25 09:00 03/12/25 09:42 Sodium Chloride Flush 0.9% 10 Ml Syringe IVP 10 ml 0100,0900,1700 THOM Administration Thiamine HCl 100 mg 03/11/25 09:00 03/12/25 09:41 Thiamine 100 Mg Tablet PO 100 mg DAILY THOM Administration Throat Lozenges 1 lozenge 03/12/25 00:23 03/12/25 09:41 Benzocaine/Menthol Lozenge MM 1 lozenge Q2HR PRN Administration Throat pain Objective Vital Signs/Intake & Output Reviewed Vital Signs: Yes Vital Signs: Vital Signs x48h Temp Pulse Resp BP BP Pulse Ox 03/12/25 09:00 36.7 C 94 20 141/84 H 96 03/12/25 05:15 36.6 C 93 14 140/94 H 97 Intake & Output: Intake & Output 03/09/25 03/10/25 03/11/25 03/12/25 23:59 23:59 23:59 23:59 Intake Total 6005 / 6005 1487 / 1487 Output Total 500 / 500 Balance 6004 / 6004 987 / 987 Weight (kg) 106.1 kg 105 kg Objective General Appearance: positive No acute distress and Alert Eyes Bilateral: positive Normal inspection and Conjunctivae nml ENT: positive ENT inspection nml Neck: positive Nml inspection Respiratory: positive No respiratory distress and Breath sounds nml Cardiovascular: positive Regular rate & rhythm Abdomen: positive No distention Back: positive Nml inspection Skin: positive Color nml Extremities: positive Nml appearance Neurologic/Psychiatric: positive Oriented x3; negative Motor nml (tremulous) Lab Results 03/12/25 10:03 03/11/25 05:09 Other Labs: Lab Results x24hrs 03/12/25 Range/Units 10:03 WBC 11.6 H (4.8-10.8) x10^3/uL RBC 4.62 L (4.70-6.10) 10^6/uL Hgb 16.3 (14.0-18.0) g/dL Hct 46.2 (42.0-52.0) % MCV 100.0 H (80.0-94.0) fL MCH 35.3 H (27.0-31.0) pg MCHC 35.3 (32.0-36.0) g/dL RDW 12.1 (12.0-15.0) % Plt Count 151 (130-450) 10^3/uL MPV 10.8 (7.4-11.4) fL Neut # (Auto) 8.7 H (1.5-6.6) 10^3/uL Lymph # (Auto) 1.9 (1.5-3.5) 10^3/uL [place] # (Auto) 0.8 (0.0-1.0) 10^3/uL Eos # (Auto) 0.1 (0.0-0.7) 10^3/uL Baso # (Auto) 0.1 (0.0-0.1) 10^3/uL Absolute Nucleated RBC 0.00 x10^3/uL Nucleated RBC % 0.0 /100WBC Assessment/Plan Problem List (1) Alcohol withdrawal: Impression: Still symptomatic on LIbrium 25mg q6h. Is needing oral symptom triggered diazepam. received one dose at about 0130, and now a dose at 1100. I am concerned that should he dc to home at this juncture, he would likely have another seizure due to withdrawal. he remains committed to maintaining sobriety on discharge and has a plan to do so. Relapsed this time when he went to a wedding and had a beer. (2) Elevated LFTs: Impression: His abdominal ultrasound shows hepatic steatosis. I will check LFTs again tomorrow. Will continue to encourage alcohol cessation. Laboratory Tests 03/10/25 03/11/25 21:14 05:09 Total Bilirubin 1.0 1.2 H AST 55 H 56 H ALT 63 H 49 (3) Tobacco dependence: Impression: He is stable on nicoderm 14 mcg patch. (4) Leukocytosis: Impression: no other signs of infection. no cough or fever. Trending down. Will check CBC again in the AM. Laboratory Tests 03/10/25 03/11/25 03/12/25 21:14 05:09 10:03 WBC 17.3 H 12.5 H 11.6 H (5) Hyponatremia: Impression: resolved. I am stopping IVF today. 03/10/25 03/11/25 21:14 05:09 Sodium 130 L 135 This patient's diagnosis and treatment plan was discussed this AM with attending physician as a part of multi disciplinary rounding meeting. I have spent 52 minutes in the care of this patient today. This includes time [id number], review and ordering of diagnostic imaging and laboratory studies. Monitoring the patient's signs symptoms, evaluation of medication effectiveness and patient's response to treatment.
[2025-03-13 06:11] LABS: BUN - BLOOD UREA NITROGEN 8.0 mg/dL (6-20); CARBON DIOXIDE - CO2 28.0 mmol/L (21-32); CREATININE 0.6 mg/dL (0.6-1.3); GFR - MDRD 157.0 (>89)
--- NOTE | 2025-03-13 11:44 | CT Report ---
PROCEDURE: CT Maxillofacial WO INDICATIONS: right TMJ tenderness after fall/seizure TECHNIQUE: CT of the face was performed, without intravenous contrast. Reformats: Coronal and sagittal. 3-D reformatted images were performed. For radiation dose reduction, the following was used: automated exposure control, adjustment of mA and/or kV according to patient size. COMPARISON: Head CT, 03/10/2025 FINDINGS: Image quality: Diagnostic. Soft tissues: No edema, masses, or fluid collections. No enlarged lymph nodes. Vascular: Visualized vascular structures appear patent throughout. Bony vascular foramina and canals appear normal. Bones: In this patient with this given history, scrutiny is given to the right temporomandibular joint. No fractures or dislocations can be seen within this region. Facial bones appear intact, without fractures, erosions, or destruction. Visualized portions of the skull base and auditory canals also appear normal. Sinuses: There is near complete opacification of the left maxillary sinus. Milder mucosal thickening can be seen elsewhere within the paranasal sinuses. No significant abnormal fluid can be seen within the mastoid air cells. The ostiomeatal complexes are constitutionally narrowed, with bilateral Lm cells. The left ostiomeatal complex is nearly completely occluded by soft tissue thickening. IMPRESSION: No fracture or dislocation can be seen of the right temporomandibular joint. Focal left maxillary sinus disease is seen. The left ostiomeatal complex is nearly completely occluded. Reviewed by: Gavin Charles MD on 03/13/2025 10:41 AM [facility] Approved by: Gavin Charles MD on 03/13/2025 10:41 AM [facility] Station ID: [id number]
--- NOTE | 2025-03-13 13:12 | PROVIDER PROGRESS NOTE ---
Subjective Prog Note Date Prog Note Date: 03/13/25 Subjective Subjective: complains of right jaw and mouth pain. he did hit the right side of his head when he fell. He bit his tongue when he had a seizure. he has been been tremulous, anxious and diaphoretic today. Did not feel well enough to eat breakfast, but is hungry for lunch. Current Medications Current Medications Current Medications: Current Medications Generic Name Dose Route Start Last Admin Trade Name Freq PRN Reason Stop Dose Admin Chlordiazepoxide HCl 25 mg 03/11/25 12:00 03/13/25 11:34 Chlordiazepoxide 25 Mg Capsule PO 25 mg Q6HR THOM Administration Diazepam 10 mg 03/11/25 03:13 03/12/25 23:55 Diazepam 5 Mg Tablet PO 10 mg Q1H PRN Administration CIWA>8 Protocol Enoxaparin Sodium 40 mg 03/11/25 09:00 03/13/25 09:07 Enoxaparin 40 Mg/0.4 Ml Syringe SUBQ 40 mg DAILY THOM Administration Ibuprofen 600 mg 03/11/25 05:42 03/13/25 09:19 Ibuprofen 600 Mg Tablet PO 600 mg Q6HR PRN Administration pain Nicotine 1 patch 03/11/25 09:00 03/13/25 09:06 Nicotine 14 Mg Patch TOP 1 patch DAILY THOM Administration Phenol/Menthol 2 sprays 03/11/25 16:41 03/11/25 20:00 Phenol Throat [place] 177 Ml MM 2 sprays Q2HR PRN Administration Throat Pain Multivit/Folic Acid/Iron 1 tab 03/11/25 09:00 03/13/25 09:07 Vitamin Tablet PO 1 tab DAILYWM THOM Administration Sodium Chloride 10 ml 03/11/25 03:48 Sodium Chloride Flush 0.9% 10 Ml Syringe IVP PRN PRN NEEDED PER PROVIDER ORDERS Sodium Chloride 10 ml 03/11/25 09:00 03/13/25 09:07 Sodium Chloride Flush 0.9% 10 Ml Syringe IVP 10 ml 0100,0900,1700 THOM Administration Thiamine HCl 100 mg 03/11/25 09:00 03/13/25 09:07 Thiamine 100 Mg Tablet PO 100 mg DAILY THOM Administration Throat Lozenges 1 lozenge 03/12/25 00:23 03/13/25 09:23 Benzocaine/Menthol Lozenge MM 1 lozenge Q2HR PRN Administration Throat pain Objective Vital Signs/Intake & Output Reviewed Vital Signs: Yes Vital Signs: Vital Signs x48h Temp Pulse Resp BP BP Pulse Ox 03/13/25 12:41 36.6 C 99 20 147/99 H 97 03/13/25 08:20 36.7 C 92 18 129/88 97 Intake & Output: Intake & Output 03/10/25 03/11/25 03/12/25 03/13/25 23:59 23:59 23:59 23:59 Intake Total 6005 / 6005 2667 / 2667 370 / 370 Output Total 500 / 500 Balance 6004 / 6004 2167 / 2167 370 / 370 Weight (kg) 106.1 kg 105 kg Objective General Appearance: positive No acute distress and Alert Eyes Bilateral: positive Conjunctivae nml and No scleral icterus ENT: positive Other (tongue with edema, abrasions and bruising bilaterally. no buccal lesions. ) Neck: positive Other (tenderness at the right TMJ, no edema, no palpable deformity. ) Respiratory: positive No respiratory distress and Breath sounds nml Cardiovascular: positive Regular rate & rhythm Abdomen: positive No distention Back: positive Nml inspection Skin: positive Color nml Extremities: positive No pedal edema Neurologic/Psychiatric: positive Oriented x3 Lab Results 03/12/25 10:03 03/13/25 05:04 Other Labs: Lab Results x24hrs 03/13/25 Range/Units 05:04 Sodium 137 (135-145) mmol/L Potassium 3.3 L (3.5-4.5) mmol/L Chloride 101 (101-111) mmol/L Carbon Dioxide 28 (21-32) mmol/L Anion Gap 8.0 (6-13) BUN 8 (6-20) mg/dL Creatinine 0.6 (0.6-1.3) mg/dL Estimated GFR (MDRD) 157 (>89) Glucose 105 H (74-104) mg/dL Calcium 9.6 (8.5-10.3) mg/dL Assessment/Plan Problem List (1) Alcohol withdrawal: Impression: Still symptomatic on LIbrium 25mg q6h. Is needing oral symptom triggered diazepam. two doses in the last day. That combined with my physical exam findings of anxiety, diaphoresis and tremors is indicative that Librium should be adjusted. I am concerned that should he dc to home at this juncture, he would likely have another seizure due to withdrawal. I am increasing librium to 50mg QID, which may contribute to his comfort. (2) Elevated LFTs: Impression: His abdominal ultrasound shows hepatic steatosis. Will continue to encourage alcohol cessation. 03/10/25 03/11/25 21:14 05:09 Total Bilirubin 1.0 1.2 H AST 55 H 56 H ALT 63 H 49 (3) Tobacco dependence: Impression: He is stable on nicoderm 14 mcg patch. (4) Leukocytosis: Impression: no other signs of infection. no cough or fever. Trending down. Will check CBC again in the AM. Laboratory Tests 03/10/25 03/11/25 03/12/25 21:14 05:09 10:03 WBC 17.3 H 12.5 H 11.6 H (5) Hyponatremia: Impression: resolved. 03/10/25 03/11/25 21:14 05:09 Sodium 130 L 135 . (6) Facial pain, acute: Impression: At the time of his seizure, he fell onto the bathroom floor, striking his head. he has been having pain in his right jaw, worsened by movment with some mild tenderness at the right TMJ. there are soft tissue injuries to the tongue, but not the buccal mucosa. I will check a CT of the face to make sure there is no bony injury. This patient's diagnosis and treatment plan was discussed this AM with attending physician as a part of multi disciplinary rounding meeting. I have spent 48 minutes in the care of this patient today. This includes time [id number], review and ordering of diagnostic imaging and laboratory studies. Monitoring the patient's signs symptoms, evaluation of medication effectiveness and patient's response to treatment
[2025-03-14 05:42] LABS: ALT ALANINE AMINOTRANSFERASE 46.0 IU/L (10-60); AST ASPARTATE AMINOTRANSFERASE 32.0 IU/L (10-42); BUN - BLOOD UREA NITROGEN 7.0 mg/dL (6-20); CARBON DIOXIDE - CO2 27.0 mmol/L (21-32); CREATININE 0.7 mg/dL (0.6-1.3); GFR - MDRD 132.0 (>89)
--- NOTE | 2025-03-14 12:15 | Discharge Summary ---
Discharge Summary Admit Date: 03/11/25 Discharge Date: 03/14/25 Discharging Provider: Rachel Bhatia PA-C Primary Care Provider: None- Code Status: Attempt Resuscitation DIAGNOSES Discharge Diagnoses with Status of Each Condition: Alcohol withdrawal Elevated LFTs, hepatic steatosis on abdominal ultrasound, recommend outpatient follow-up Tobacco dependence Leukocytosis, resolving, likely stress related Hyponatremia, resolved Facial pain, acute likely contusion, negative maxillofacial CT. HPI History of Present Illness: 29 yo M who presented following a fall at home. He was exiting the shower and then ended up on the floor. He does not recall exactly what happened, was found by his son who told him he fell and was convulsing mostly with tension in his head and back. He was noticed to bang his head against the wall. He vomited once as well during he episode. He denies any history of seizure. He drinks anywhere from 2-4 beers to half a fifth a day. Yesterday he had 3-4 beers but day before he had significantly more which is more his baseline. He has had withdrawals previously, typically anxiety-ridden, shaking with tremors. He has taken benzos in the past from someone elses prescription to help himself through the symptoms. He has quit previously for over a year. He is having pain in his tongue where he bit, head, shoulder, legs primarily muscle soreness. HOSPITAL COURSE Hospital Course: 1) Alcohol withdrawal: Discharged to home/self care on librium taper. His symptoms are controlled. He was also given #3 10mg tabs of valium for any breakthrough symptoms. He was encouraged not to drink alcohol. He was given recovery resources by social work. Also was assisted in obtaining health coverage and encouraged to obtain primary care in the community. (2) Elevated LFTs: Impression: His abdominal ultrasound shows hepatic steatosis. Will continue to encourage alcohol cessation. LFTs should be repeated in the outpatient environment. 03/10/25 03/11/25 21:14 05:09 Total Bilirubin 1.0 1.2 H AST 55 H 56 H ALT 63 H 49 (3) Tobacco dependence: He is stable on nicoderm 14 mcg patch. Encouraged tobacco use cessation. (4) Leukocytosis: no other signs of infection. no cough or fever. Trending down. Laboratory Tests 03/10/25 03/11/25 03/12/25 21:14 05:09 10:03 WBC 17.3 H 12.5 H 11.6 H (5) Hyponatremia: resolved. . (6) Facial pain, acute: At the time of his seizure, he fell onto the bathroom floor, striking his head. he has been having pain in his right jaw, worsened by movment with some mild tenderness at the right TMJ. there are soft tissue injuries to the tongue, but not the buccal mucosa. Maxillofacial CT was negative ALLERGIES Allergies Allergy/AdvReac Type Severity Reaction Status Date / Time ranitidine Allergy Unknown Verified 03/10/25 20:49 acetaminophen (From Tylenol) AdvReac Nausea Verified 03/10/25 20:49 tramadol AdvReac Nausea Verified 03/10/25 20:49 MEDICATIONS Ambulatory Orders Medication Instructions Recorded Confirmed chlordiazepoxide HCl 25 mg capsule 50 mg (2 x 25 mg) P O Q6HR #26 caps 03/14/25 diazepam 5 mg tablet 10 mg (2 x 5 mg) PO Q8HR PRN 03/14/25 CIWA>8 #3 tabs PHYSICAL EXAM AT DISCHARGE Vital Signs: Vital Signs x48h Temp Pulse Resp BP Pulse Ox 03/14/25 14:41 36.6 C 88 20 129/80 97 LABS 03/12/25 10:03 03/14/25 05:00 FOLLOW UP Follow Up: Community PCP was encouraged. TIME SPENT Time Spent in Discharge (Minutes): 40 Discharge Plan Discharge Patient Disposition: Home, Self Care Condition: Stable Prescriptions: New chlordiazepoxide HCl 25 mg Capsule 50 mg PO Q6HR Qty: 26 0RF Rx Instructions: 50mg 4 times daily for 4 doses, 25mg 4 times a day for 4 doses, 25mg 3 times a day for 3 doses, 25mg 2 times a day for 2 doses, then one dose at bedtime on the final day. diazepam 5 mg Tablet 10 mg PO Q8HR PRN (Reason: CIWA>8) Qty: 3 0RF Activity Restrictions: Activity as Tolerated Diet: Regular Health Concerns: Your Medications for Alcohol Withdrawal You are being discharged with medications to help manage alcohol withdrawal symptoms safely at home. It is very important that you take these medications exactly as prescribed. Chlordiazepoxide (Librium) - Scheduled Taper: * Take this medication on the schedule provided by your doctor * This medication will be gradually reduced over the next several days * Do NOT stop this medication suddenly * Take with food if it causes stomach upset * This medication may cause drowsiness - do not drive or operate machinery Diazepam (Valium) - As Needed for Breakthrough Symptoms: * Take this medication ONLY if you develop moderate to severe withdrawal symptoms * Signs that you may need this medication include: severe shaking/tremors, rapid heartbeat, heavy sweating, severe anxiety, or agitation * Follow the dosing instructions provided by your doctor * Do not take more than prescribed * Do not drive on this medication. Thiamine (Vitamin B1): * Take 100 mg by mouth daily for 3-5 days * This helps prevent serious complications affecting your brain and nervous system * You may continue taking a daily multivitamin after completing thiamine Warning Signs - When to Seek Emergency Care Call 911 or go to the nearest emergency department immediately if you experience: * Seizures or convulsions * Severe confusion or disorientation * Seeing, hearing, or feeling things that are not there (hallucinations) * Fever above 101F (38.3C) * Severe tremors that do not improve with medication * Chest pain or difficulty breathing * Persistent vomiting that prevents you from taking medications or staying hydrated * Thoughts of harming yourself or others These symptoms may indicate severe alcohol withdrawal (delirium tremens), which requires immediate medical attention. Daily Self-Care During Withdrawal Create a Safe, Calm Environment: * Stay in a quiet, low-stimulation environment at home * Reduce bright lights and loud noises * Have a trusted family member or friend stay with you if possible Stay Hydrated and Nourished: * Drink plenty of non-caffeinated fluids (water, juice, broth) * Avoid caffeine, which can worsen anxiety and tremors * Eat regular, nutritious meals even if you don't feel hungry * Continue taking your daily multivitamin Monitor Your Symptoms: * Keep track of how you are feeling each day * Note any new or worsening symptoms * Your support person can help monitor your condition Follow-Up Care You must follow up with your healthcare provider: * You need to establish care with a PCP. I agree that therapy would be super helpful for you, and also some medical treatment for your anxiety. We have mental health fire watcher with [facility] that can be very helpful. I am sending a copy of my notes over to the clinics, and hopeful that we can help you get hooked into the system to get help. * If symptoms worsen acutely, please come back to the Emergency Dept. Quitting Smoking - An Important Step for Your Health Smoking is extremely common among people with alcohol use disorder, but quitting smoking will significantly improve your overall health and does NOT interfere with your recovery from alcohol. Why Quit Smoking Now: * Smoking combined with alcohol use dramatically increases your risk of cancer, heart disease, and lung disease * Quitting smoking will not make your alcohol recovery harder * Many effective treatments are available to help you quit Medications to Help You Quit Smoking: Several medications can help you stop smoking. Talk to your doctor about: * Nicotine replacement therapy (NRT):Available as patches, gum, lozenges, nasal spray, or inhalers - these can increase your chances of quitting by 50-60% * Varenicline (Chantix):A prescription medication that has been shown to help people with alcohol dependence quit smoking * Bupropion (Wellbutrin SR):An antidepressant that also helps with smoking cessation * Combination therapy:Using a nicotine patch plus nicotine gum or lozenges together is more effective than using one type alone Behavioral Support for Quitting: * Consider joining a smoking cessation program or support group * Counseling combined with medication is more effective than either alone * Free resources: Call -NOW ( ) for free telephone counseling Getting Started: * Set a quit date within the next 2-4 weeks * Tell your family and friends about your plan to quit * Remove cigarettes, lighters, and ashtrays from your home and car * Identify your smoking triggers and plan how to avoid or manage them Continuing Treatment for Alcohol Use Disorder Completing alcohol withdrawal is just the first step. Long-term treatment is essential for maintaining sobriety: * Ask your doctor about medications for alcohol use disorder (naltrexone, acamprosate, or disulfiram) * Consider joining a support group such as Alcoholics Anonymous (AA) * Engage in counseling or therapy * Develop a relapse prevention plan[2][8] Important Reminders * Do not drink alcoholwhile taking these medications - this can be dangerous * Do not stop your medications suddenlywithout talking to your doctor * Keep all follow-up appointments- daily monitoring is critical for your safety * Ask for help- recovery is easier with support from family, friends, and healthcare providers * Be patient with yourself- withdrawal symptoms typically improve within 5-7 days Print Language: Peruvian Patient Instructions: Alcohol Withdrawal: What to Expect Stand Alone Forms: PCP List, SBIRT Vitals documented within 30 minutes of discharge?: Yes
[2025-03-14 14:52] VITALS: BP 129/80; TEMP 97.9; O2SAT 97
== END 2025-03-14 14:52 | disposition home or self-care (01) | DRG 897 ==
LOC: ED 20:46 → MS2 20:46
PROVIDERS: ADMIT Internal Medicine; ATTEND Internal Medicine